=== PATIENT | female | born 1975 | race Caucasian/White ===

== ENCOUNTER 2016-09-04 04:21 | Emergency (ER) | payer BC, MEDICAID ==
[2016-09-04] MEDS ORDERED: cefTRIAXone 1,000 MG VIAL IM ONE (05:13)
[2016-09-04] MEDS ORDERED: Ketorolac 60 MG/2 ML SDV IM ONE (05:13)
--- NOTE | 2016-09-04 05:20 | EDM.PDOC ---
ED HPI ENT - General Chief Complaint: ENT Problem Stated Complaint: SORE THROAT Time Seen by Provider: 09/04/16 04:45 Source: Reports: Patient History Limitations: Reports: No limitations - History of Present Illness INITIAL COMMENTS - FREE TEXT/NARRATIVE: c/o ST x 4d ST on L side mainly and down the middle anteriorly x 4d, now with pain in her L ear and L side of her neck no f/c/d, took ibuprofen yesterday that did not help, no rhinorrhea, no cough, has had trouble swallowing d/t pain, no n/v seen 3d ago by Dr Stern in office and dx with tonsillitis, no throat swab done , pt thinks throat was red, begin on cephalexin 500 mg bid x 10d pain has gotten worse lives with daughter and female friend, neither are ill, does maintenance work at [employer] - Related Data Allergies/ADRs: Allergies Allergy/AdvReac Type Severity Reaction Status Date / Time No Known Allergies Allergy Verified 09/04/16 04:31 Home Meds: Home Meds Cephalexin 500 mg PO BID 09/04/16 [History] Past Medical History - Past Health History Medical/Surgical History: Denies Medical/Surgical History Social & Family History - Tobacco Use Smoking Status *Q: Current Every Day Smoker Years of Tobacco use: 20 Packs/Tins Daily: 1 - Caffeine Use Caffeine Use: Reports: Energy drinks, Soda - Alcohol Use Days Per Week of Alcohol Use: 1 Number of Drinks Per Day: 6 Total Drinks Per Week: 6 - Recreational Drug Use Recreational Drug Use: No ED ROS ENT - Review of Systems Review Of Systems: See Below Constitutional: Reports: no symptoms HEENT: Reports: Throat pain Respiratory: Reports: No Symptoms Cardiovascular: Reports: No symptoms Endocrine: Reports: no symptoms GI/Abdominal: Reports: No symptoms : Reports: no symptoms Musculoskeletal: Reports: no symptoms Skin: Reports: no symptoms Neurological: Reports: No Symptoms Psychiatric: Reports: No symptoms Hematologic/Lymphatic: Reports: no symptoms Immunologic: Reports: no symptoms ED EXAM, ENT - Physical Exam Exam: See Below Exam Limited By: No limitations General Appearance: alert, WD/WN, no apparent distress Ears: normal external exam, normal canal, hearing grossly normal, normal TMs Nose: normal inspection, normal mucousa, no blood Mouth/Throat: Normal gums, Normal lips, Normal teeth, Other (slight pink color to tonsils and pharynx, not red, no exudate, 1+ tonsils symmetric, mild swell on L side that is inc'd c/w R, uvula not displaced, neck with 2-3 LNs of 0.75 cm on L under mid mandible and slightly tender, none on R, no ant/pos SCM LNs, moderate ROM neck with some limitation to rotation and R lat flexion d/t pain, no spasm) Head: atraumatic, normocephalic Neck: non-tender Respiratory/Chest: no respiratory distress, lungs clear, normal breath sounds, no accessory muscle use, chest non-tender Cardiovascular: normal peripheral pulses, regular rate, rhythm, no edema, no gallop, no murmur, no rub GI/Abdominal: soft, non tender Back: normal inspection, full range of motion Extremities: normal inspection, normal range of motion, non-tender, no pedal edema Neurological: alert, oriented, CN II-XII intact, normal cognition, normal reflexes, no motor/sensory deficits Psychiatric: normal affect, normal mood Skin: Warm, Dry, Intact, Normal color, No rash Course - Vital Signs Last Recorded V/S: Last Vital Signs Temp 36.9 C 09/04/16 04:25 Pulse 79 09/04/16 04:25 Resp 18 09/04/16 04:25 BP 111/72 09/04/16 04:25 Pulse Ox 99 09/04/16 04:25 - Orders/Labs/Meds Orders: Active Orders 24 hr Category Date Time Status Soft Tissue Neck w Cont [CT] Stat Exams 09/04/16 05:09 Taken CHLAMYDIA,AND GC BY APTIMA Stat Lab 09/04/16 05:08 Received CULTURE STREP A CONFIRMATION [RM] Stat Lab 09/04/16 05:16 Results STREP SCRN A RAPID W CULT CONF [RM] Stat Lab 09/04/16 05:16 Results Labs: Laboratory Tests 09/04/16 09/04/16 09/04/16 Range/Units 05:30 05:30 05:30 WBC 13.4 H (4.5-12.0) X10-3/uL RBC 4.70 (3.23-5.20) x10(6)uL Hgb 14.1 (11.5-15.5) g/dL Hct 41.8 (30.0-51.3) % MCV 88.9 (80-96) fL MCH 29.9 (27.7-33.6) pg MCHC 33.7 (32.2-35.4) g/dL RDW 12.8 (11.5-15.5) % Plt Count 343 (125-369) X10(3)uL MPV 8.1 (7.4-10.4) fL Neut % (Auto) 78.2 (46-82) % Lymph % (Auto) 12.1 L (13-37) % Craven % (Auto) 7.3 (4-12) % Eos % (Auto) 2 (1.0-5.0) % Baso % (Auto) 1 (0-2) % Neut # (Auto) 10.5 H (1.6-8.3) # Lymph # (Auto) 1.6 (0.6-5.0) # Craven # (Auto) 1.0 (0.0-1.3) # Eos # (Auto) 0.2 (0.0-0.8) # Baso # (Auto) 0.1 (0.0-0.2) # Sodium 138 (135-145) mmol/L Potassium 4.1 (3.5-5.3) mmol/L Chloride 104 (100-110) mmol/L Carbon Dioxide 26 (23-29) mmol/L BUN 9 (5-20) mg/dL Creatinine 0.6 (0.6-1.3) mg/dL Est Cr Clr Drug Dosing 106.55 mL/min Estimated GFR (MDRD) > 60 (>60) BUN/Creatinine Ratio 15.0 (9-20) Glucose 94 (80-116) mg/dL Calcium 8.6 (8.6-10.2) mg/dL Total Bilirubin 0.9 (0.1-1.3) mg/dL AST 16 D (5-27) IU/L ALT 17 D (14-26) IU/L Alkaline Phosphatase 71 (56-112) IU/L C-Reactive Protein 7.6 H* (0.0-1.0) mg/dL Total Protein 6.9 (6.0-8.0) g/dL Albumin 3.6 (3.5-5.2) g/dL Globulin 3.3 g/dL Albumin/Globulin Ratio 1.1 Monoscreen Negative (NEGATIVE) Meds: Medications Discontinued Medications Generic Name Dose Route Start Last Admin Trade Name Kala PRN Reason Stop Dose Admin Ceftriaxone Sodium 1,000 mg 09/04/16 05:13 09/04/16 05:36 Rocephin IM 09/04/16 05:14 1,000 mg ONETIME ONE Administration Ceftriaxone Sodium Confirm 09/04/16 05:22 09/04/16 05:37 Rocephin Administered 09/04/16 05:23 Not Given Dose 1 gm .ROUTE .STK-MED ONE Iopamidol 75 ml 09/04/16 06:29 09/04/16 06:41 Isovue-370 (76%) IV 09/04/16 06:30 75 ml ONETIME ONE Administration Ketorolac Tromethamine 60 mg 09/04/16 05:13 09/04/16 05:33 Toradol IM 09/04/16 05:14 60 mg ONETIME ONE Administration - Re-Assessments/Exams Free Text/Narrative Re-Assessment/Exam: 09/04/16 07:34 CT shows left peritonsillar abscesses of 8 mm and 11 mm with multiple reactive LNs, d/w ENT Dr Fernandez from [facility] who accepted pt in transfer to [facility] in [place], pt agrees, pt declined ambulance transfer, requested that her friend drive her there, there is no airway compromise, vs are stable Departure - Departure Time of Disposition: 07:35 Disposition: DC/Tfer to Acute Hospital 02 Condition: good Clinical Impression: Peritonsillar abscess Forms: ED Department Discharge Additional Instructions: Pt to go directly to [facility] in [place] to see ENT Dr Fernandez. - My Orders Last 24 Hours: My Active Orders 09/04/16 05:08 CHLAMYDIA,AND GC BY APTIMA Stat 09/04/16 05:09 Soft Tissue Neck w Cont [CT] Stat 09/04/16 05:16 CULTURE STREP A CONFIRMATION [RM] Stat STREP SCRN A RAPID W CULT CONF [RM] Stat - Assessment/Plan Last 24 Hours: My Active Orders 09/04/16 05:08 CHLAMYDIA,AND GC BY APTIMA Stat 09/04/16 05:09 Soft Tissue Neck w Cont [CT] Stat 09/04/16 05:16 CULTURE STREP A CONFIRMATION [RM] Stat STREP SCRN A RAPID W CULT CONF [RM] Stat
[2016-09-04] MEDS ORDERED: cefTRIAXone 1 GM Vial ONE (05:22)
[2016-09-04] MEDS ORDERED: Iopamidol 755 Mg/ML 75 ML Bottle IV ONE (06:29)
[2016-09-04 07:37] VITALS: BP 121/77
== END 2016-09-04 07:49 ==
LOC: FB.ED 04:21
DX: J36 Peritonsillar abscess (principal); F17.210 Nicotine dependence, cigarettes, uncomplicated
CPT/HCPCS: 36415; 70491; 80053; 85025; 86140; 86308; 87081; 87430; 87491; 87591; 96372; 99285; J0696; J1885; Q9967

== ENCOUNTER 2016-09-21 21:55 | Emergency (ER) | payer MEDICAID ==
[2016-09-21 22:18] VITALS: BP 116/81
--- NOTE | 2016-09-22 02:58 | ER ---
DATE SEEN: 09/21/2016 REASON FOR VISIT: Laceration. HISTORY OF PRESENT ILLNESS: This is a 41-year-old female with a laceration on the index finger on the right, happened at home with a knife accidentally. PAST MEDICAL HISTORY: She is up to date on immunizations including tetanus. ALLERGIES: None. PHYSICAL EXAMINATION: GENERAL: Nontoxic, afebrile, and normotensive. EXTREMITIES: Index finger revealed a 1.5 cm sized laceration at the knuckle PIP joint. IMPRESSION: Laceration, simple. PLAN: I used 4-0 Ethilon, placed three stitches after local anesthesia. There were no complications. Discharged home. /[id number] VAN/PAOLA
== END 2016-09-21 22:30 | disposition home or self-care (01) ==
LOC: FB.ED 21:55
DX: S61.210A Laceration without foreign body of right index finger without damage to nail, initial encounter (principal); W26.0XXA Contact with knife, initial encounter
CPT/HCPCS: 12001; 99282

== ENCOUNTER 2017-03-28 09:16 | Emergency (ER) | payer OTHER, MEDICAID ==
[2017-03-28 09:34] VITALS: BP 124/84
--- NOTE | 2017-03-28 09:41 | EDM.PDOC ---
ED HPI GENERAL MEDICAL PROBLEM - General Chief Complaint: Laceration Stated Complaint: head injury Time Seen by Provider: 03/28/17 09:20 Source of Information: Reports: Patient History Limitations: Reports: No Limitations - History of Present Illness INITIAL COMMENTS - FREE TEXT/NARRATIVE: 42 yo female stood up into a metal pipe and lacerated the top of her head. No LOC. [place] a crack in her neck, but now has no pain and a full ROM. No nausea or headache. Tetanus is UTD. 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[employer]: Reports: Other (see below) (none) Head Pain Score (Numeric/FACES): 1 - Related Data Allergies Allergy/AdvReac Type Severity Reaction Status Date / Time No Known Allergies Allergy Verified 03/28/17 09:31 Home Meds: Home Meds NK [No Known Home Meds] 03/28/17 [History] Past Medical History - Past Health History Medical/Surgical History: Denies Medical/Surgical History Social & Family History - Tobacco Use Smoking Status *Q: Never Smoker Years of Tobacco use: 20 Packs/Tins Daily: 1 - Caffeine Use Caffeine Use: Reports: Soda - Alcohol Use Days Per Week of Alcohol Use: 1 Number of Drinks Per Day: 6 Total Drinks Per Week: 6 - Recreational Drug Use Recreational Drug Use: No ED ROS GENERAL - Review of Systems Review Of Systems: See Below Constitutional: Reports: No Symptoms HEENT: Reports: No Symptoms Cardiovascular: Reports: No Symptoms Musculoskeletal: Reports: No Symptoms Skin: Reports: Wound (scalp) Neurological: Reports: No Symptoms Psychiatric: Reports: No Symptoms ED EXAM, SKIN/RASH Exam: See Below Exam Limited By: No Limitations General Appearance: Alert, WD/WN, No Apparent Distress Eye Exam: Bilateral Eye: Normal Inspection, PERRL Ears: Normal External Exam, Normal Canal, Hearing Grossly Normal Nose: Normal Inspection, Normal Mucosa, No Blood Throat/Mouth: Normal Voice, No Airway Compromise Head: Other (scalp laceration) Neck: Normal Inspection, Supple, Non-Tender, Full Range of Motion Neurological: Alert, Oriented, CN II-XII Intact, Normal Cognition, Normal Gait, No Motor/Sensory Deficits Psychiatric: Normal Affect, Normal Mood Skin: Warm, Dry, Normal Color, No Rash, Wound/Incision Location, Skin: Head Characteristics: Linear Associated features: Tenderness Lymphatic: No Adenopathy ED SKIN PROCEDURES - Laceration/Wound Repair Gun[place]rel Head Lac/Wound length In cm: 2.9 Appearance: Subcutaneous Distal NVT: Neuro & Vascular Intact Anesthetic Type: Other (none) Skin Prep: Saline Exploration/Debridement/Repair: No Foreign Material Found Closed with: [place] # of Sutures: 3 Drain Placement: No Sterile Dressing Applied: None Tetanus Status Addressed: Yes Complications: No Course - Vital Signs Last Recorded V/S: Last Vital Signs Temp 36.6 C 03/28/17 09:33 Pulse 78 03/28/17 09:33 Resp 18 03/28/17 09:33 BP 124/84 03/28/17 09:33 Pulse Ox 100 03/28/17 09:33 Departure - Departure Time of Disposition: 09:40 Disposition: Home, Self-Care 01 Condition: Good Clinical Impression: Laceration of scalp Qualifiers: Encounter type: initial encounter Qualified Code(s): S01.01XA - Laceration without foreign body of scalp, initial encounter - Discharge Information Referrals: PCP,None [Primary Care Provider] - Forms: ED Department Discharge Additional Instructions: Clean wound twice daily with soap and water. Dry. Apply Bacitracin ointment. Recheck for signs of infection. [place] out in the clinic in 9 days. Acetaminophen prn pain.
== END 2017-03-28 09:45 | disposition home or self-care (01) ==
LOC: FB.ED 09:16
DX: S01.01XA Laceration without foreign body of scalp, initial encounter (principal); W45.8XXA Other foreign body or object entering through skin, initial encounter
CPT/HCPCS: 12002; 99283; A4217

== ENCOUNTER 2024-03-25 09:33 | Emergency (ER) | payer BC, OTHER ==
[2024-03-25 10:12] LABS: BASOPHILS ABSOLUTE AUTO 0.1 x10-3/uL (0.0-0.1); BASOPHILS PERCENT AUTO 0.7 % (0.2-1.5); EOSINOPHILS ABSOLUTE AUTO 0.1 x10-3/uL (0.0-0.8); HEMATOCRIT 40.1 % (34.2-48.2); HEMOGLOBIN 13.2 g/dL (11.4-15.5); LYMPHOCYTES ABSOLUTE AUTO 3.5 x10-3/uL (1.0-4.4); MEAN CORPUSCULAR HGB CONC 32.9 g/dL (31.9-34.8); MEAN CORPUSCULAR VOLUME 88.2 fL (76.7-100.5); MEAN PLATELET VOLUME 7.7 fL (7.1-12.4); MONOCYTES PERCENT AUTO 7.8 % (4.4-15.7); NEUTROPHILS ABSOLUTE AUTO 8.6 x10-3/uL (1.5-6.3); NEUTROPHILS PERCENT AUTO 64.5 % (30.8-76.2); PLATELET COUNT,PLT 438 x10(3)uL (151-488); RED BLOOD CELL COUNT 4.55 x10(6)uL (3.60-5.20); RED CELL DISTRIBUTION WIDTH 13.8 % (12.3-16.5); WHITE BLOOD CELL COUNT,WBC 13.3 x10-3/uL (3.0-10.3)
[2024-03-25 10:15] LABS: BLOOD UREA NITROGEN,BUN 12 mg/dL (7-18); CALCIUM 8.5 mg/dL (8.6-10.2); CARBON DIOXIDE,CO2 29 mmol/L (21-32); CHLORIDE,CL 105 mmol/L (100-110); CREATININE 0.8 mg/dL (0.55-1.02); EST CRCL DRUG DOSING (CG) 73.46 mL/min; ESTIMATED GFR 90 mL/min (>60); GLUCOSE RANDOM 89 mg/dL (80-116); POTASSIUM,K 4.3 mmol/L (3.5-5.3); SODIUM,NA 139 mmol/L (135-145)
[2024-03-25 10:23] LABS: A/G RATIO 0.9; ALANINE AMINOTRANSFERASE,ALT 32 U/L (12-36); ALBUMIN 3.1 g/dL (3.5-5.2); ALKALINE PHOSPHATASE 78 IU/L (56-112); ASPARTATE AMNIOTRANSFERASE,AST 16 IU/L (5-25); BILIRUBIN TOTAL 0.1 mg/dL (0.1-1.3); PROTEIN TOTAL,TP 6.7 g/dL (6.0-8.0)
[2024-03-25] MEDS: Iopamidol 755 Mg/ML 100 ML Bottle IV SCH (10:31)
[2024-03-25 11:04] VITALS: BP 139/90; PULSE 89
== END 2024-03-25 10:55 | disposition home or self-care (01) ==
LOC: FB.ED 09:33
DX: J36 Peritonsillar abscess (principal); F17.210 Nicotine dependence, cigarettes, uncomplicated
CPT/HCPCS: 36415; 70491; 80053; 83605; 85025; 86140; 99283; 99284; Q9967

== ENCOUNTER 2024-12-17 13:33 | Emergency (ER) | payer OTHER, BC ==
[2024-12-17] MEDS: Diphtheria,Pertussis(Acell),Tetanus Vaccine 0.5 ML Syringe IM ONE (14:43)
[2024-12-17 15:04] VITALS: BP 135/89; PULSE 84
== END 2024-12-17 14:49 | disposition home or self-care (01) ==
LOC: FB.ED 13:33
DX: S05.02XA Injury of conjunctiva and corneal abrasion without foreign body, left eye, initial encounter (principal); F17.200 Nicotine dependence, unspecified, uncomplicated; Z79.899 Other long term (current) drug therapy; X58.XXXA Exposure to other specified factors, initial encounter
CPT/HCPCS: 90471; 90715; 99283-25